=== PATIENT | male | born 1990 | race Caucasian/White ===

== ENCOUNTER 2023-10-23 12:09 | Emergency (ER) | payer MEDICAID ==
[~2023-10-23] VITALS: Ht 175.3 cm; Wt 105.0 kg
[2023-10-23 12:39] VITALS: TEMP 97.4
[2023-10-23] MEDS ORDERED: GOLYS PO (15:44)
[2023-10-23 16:00] VITALS: BP 123/70; PULSE 71; RESP 16; O2SAT 99
== END 2023-10-23 16:06 | disposition home or self-care (01) ==
LOC: ER 12:10
DX: K59.00 Constipation, unspecified (principal); R11.0 Nausea; R10.9 Unspecified abdominal pain
CPT/HCPCS: 74018; 99283